=== PATIENT | female | born 1980 | race Caucasian/White ===

== ENCOUNTER 2016-08-06 12:34 | Observation (INO) | payer OTHER ==
[2016-08-05 13:50] LABS: HEMATOCRIT 43.4 % (36.0-48.0); HEMOGLOBIN 14.7 g/dL (12.0-16.0)
[2016-08-05 14:05] LABS: A/G RATIO 1.2 (0.7-1.9); ALBUMIN 4.1 G/DL (3.5-5.0); ALKALINE PHOSPHATASE 73 U/L (45-117); BUN (BLOOD UREA NITROGEN) 12 MG/DL (6-23); CHLORIDE, SERUM 105 MMOL/L (96-112); CO2 (CARBON DIOXIDE) 31 MMOL/L (24-34); CREATININE 0.76 MG/DL (0.55-1.02); GFR AFRICAN AMERICAN 116 ML/MIN (>=60); GFR NON AFRICAN AMERICAN 100 ML/MIN (>=60); GLOBULIN 3.3 G/DL (2.5-4.1); GLUCOSE, SERUM 104 MG/DL (60-99); POTASSIUM, SERUM 3.7 MMOL/L (3.5-5.3); SGOT(AST) 9 U/L (5-40); SGPT(ALT) 15 U/L (5-65); SODIUM, SERUM 139 MMOL/L (135-148); TOTAL BILIRUBIN 0.5 MG/DL (0-1.2); TOTAL PROTEIN 7.4 G/DL (6.0-8.5)
--- NOTE | ~2016-08-06 | OP ---
Record Of Operation [facility] [address] [place]. [address] NAME: CONOR MIGUEL : 76 STATUS : DIS Jackson PAT#: [id number] AGE: 35 ADM/REG DATE : 08/06/16 MR#: [id number] REPORT SERV DATE: 08/07/16 DICTATED BY: AMEYA MCCARTNEY DATE: 08/07/16 REPORT STATUS : Draft TRANSCRIBED BY: MODL DATE: 08/07/16 DATE OF PROCEDURE: 08/06/2016 PREOPERATIVE DIAGNOSIS: Recurrent ventral/incisional hernia. POSTOPERATIVE DIAGNOSIS: Recurrent ventral/incisional hernia. PROCEDURE: Laparoscopic reduction and mesh patch repair of recurrent ventral/incisional hernia. DESCRIPTION OF PROCEDURE: The patient was brought to the operating suite, placed in a supine position, underwent satisfactory general endotracheal anesthesia without incident. The skin of the abdomen was scrubbed, prepped, and draped in usual sterile fashion. 0.5% Marcaine with epinephrine was utilized as supplemental local anesthesia at all intended trocar sites. Initially, a left upper quadrant incision was performed and a disposable Veress insufflation needle was inserted through the muscular aponeurotic fascia into the peritoneal cavity. Intraperitoneal tip location ascertained using the saline hanging drop method. Following this, CO2 was insufflated for pressures of 15 mmHg throughout the case. After adequate insufflation pressure was achieved, Veress needle was removed, and a 10/11 trocar was inserted through this site into the peritoneal cavity following which a rigid forward-viewing 10 mm laparoscope was inserted. Visualization of the intraabdominal parietes revealed no evidence of injury from initial insufflation or puncture. Two additional 5 mm trocars were placed in the left mid and left lower quadrant of the abdomen under direct visualization, 5 mm in size. The midline was evaluated. There was no adhesions or incarcerated bowel, but there was a large incisional defect. Initially, cautery was used to excise the hernia sac. It was just that a 15 x 20 cm piece of Ventralight ST patch material would be satisfactory to cover the defect. Accordingly, the patch was repaired on the back table with 0 Ethibond at the four cardinal points of the compass around the periphery of the patch. The patch was then rolled up and placed in the peritoneal cavity and unrolled in the abdomen the 0 Ethibond sutures were retrieved at the four points of the compass around the periphery of the patch and tied transvaginally in the subcutaneous location. Next, multiple firings of the 5 mm secure strap were utilized to further fix the patch to the back of the musculature. Hemostasis was assured. Laparoscopy was terminated. Trocars removed. CO2 was allowed to egress from the peritoneal cavity. The 10 mm site was closed at the fascial level with [id number] suture of 0 Vicryl. Subcutaneous tissue closed at all sites with interrupted 3-0 Vicryl, running subcuticular stitch 4-0 Vicryl for the skin. Dermabond skin adhesive placed. Record Of Operation [facility] [address] [facility] [place] [place]. [address] NAME: CONOR MIGUEL : 76 STATUS : DIS Jackson PAT#: [id number] AGE: 35 ADM/REG DATE : 08/06/16 MR#: [id number] REPORT SERV DATE: 08/07/16 DICTATED BY: AMEYA MCCARTNEY DATE: 08/07/16 REPORT STATUS : Draft TRANSCRIBED BY: AGATA DATE: 08/07/16 The patient tolerated the procedure well and was returned to PACU in stable condition. At the termination of the procedure, sponge, needle, lap, and instrument counts were correct x3. ESTIMATED BLOOD LOSS: Less than 15 mL. ELISA/AGATA eya Mccartney M.D. / [id number] CC: Susu Simmons CHELSEY
[~2016-08-06 12:34] MED LIST: IBU-200200 MG PO; IMITREX50 PO; MACRO50B PO; MELA3 PO
[2016-08-07 05:57] LABS: BUN (BLOOD UREA NITROGEN) 9 MG/DL (6-23); CALCIUM, SERUM 8.7 MG/DL (8.5-10.4); CHLORIDE, SERUM 109 MMOL/L (96-112); CO2 (CARBON DIOXIDE) 21 MMOL/L (24-34); CREATININE 0.75 MG/DL (0.55-1.02); GFR AFRICAN AMERICAN 118 ML/MIN (>=60); GFR NON AFRICAN AMERICAN 102 ML/MIN (>=60); GLUCOSE, SERUM 116 MG/DL (60-99); POTASSIUM, SERUM 4.1 MMOL/L (3.5-5.3); SODIUM, SERUM 141 MMOL/L (135-148)
[2016-08-07 05:59] LABS: BASOPHILS 0.1 %; BASOPHILS ABSOLUTE 0.01 10/3/uL (0.0-0.16); EOSINOPHILS 0 %; HEMATOCRIT 40.8 % (36.0-48.0); IMMATURE GRANULOCYTES 0.2 %; IMMATURE GRANULOCYTES ABSOLUTE 0.02 10/3/uL (0.0-0.11); LYMPHOCYTES 13.2 %; LYMPHOCYTES ABSOLUTE 1.19 10/3/uL (0.67-4.30); MEAN CORPUS HGB CONC 34.3 g/dL (32.0-36.0); MEAN CORPUSCULAR HEMOGLOB 29.5 pg (26.0-34.0); MEAN CORPUSCULAR VOLUME 86.1 fL (80-100); MEAN PLATELET VOLUME 9.8 fL (9.2-13.0); MONOCYTES 6.9 %; MONOCYTES ABSOLUTE 0.62 10/3/uL (0.21-1.20); NEUTROPHILS 79.6 %; NEUTROPHILS ABSOLUTE 7.15 10/3/uL (2.02-8.40); PLATELET COUNT 208 10/3/uL (150-400); RED CELL COUNT 4.74 10/6/uL (4.0-5.6)
[2016-08-07 06:00] LABS: MANUAL DIFF NO %
[2016-08-07] MEDS ORDERED: NORCO1 TA1 PO (10:19)
[2016-08-07] MEDS ORDERED: PR25 PO (10:21)
[2016-08-07] MEDS ORDERED: TORATAB PO (10:22)
== END 2016-08-07 11:51 | disposition home or self-care (01) ==
LOC: SDC 12:34 → 5SO 17:50
PROVIDERS: Specialist
PROC: 0WUF4JZ Supplement Abdominal Wall with Synthetic Substitute, Percutaneous Endoscopic Approach (ICD-10-PCS; principal; 2016-08-06 13:45)
DX: K43.2 Incisional hernia without obstruction or gangrene (principal); F41.9 Anxiety disorder, unspecified; G43.909 Migraine, unspecified, not intractable, without status migrainosus; Z87.440 Personal history of urinary (tract) infections; Z98.890 Other specified postprocedural states; Z88.5 Allergy status to narcotic agent; Z88.8 Allergy status to other drugs, medicaments and biological substances
CPT/HCPCS: 80048; 80053; 84703; 85014; 85018; 85025; 87641; 96372; 96374; 96375; 96376; A9270-GY; C1781; G0378; J0690; J1170; J1885; J2250; J2405; J2550; J2710; J3010